=== PATIENT | male | born 1955 | race Caucasian/White ===

== ENCOUNTER 2020-09-10 16:34 | Emergency (ER) | payer OTHER | END 2020-09-10 17:24 | disposition home or self-care (01) | LOC: JVIRT 16:34 | DX: Z03.818 Encounter for observation for suspected exposure to other biological agents ruled out (principal) | CPT/HCPCS: C9803; Q3014-GT; U0003 ==

== ENCOUNTER 2022-12-05 07:21 | Day surgery (SDC) | payer OTHER, BC ==
[2022-11-30 18:07] VITALS: BMI 24.4
[2022-12-05] MEDS ORDERED: PROPOFOL 120 ML ONE (07:30)
[2022-12-05 08:37] VITALS: PULSE 61; RESP 18; TEMP 98.4
[2022-12-05 08:51] VITALS: BP 123/79
== END 2022-12-05 09:15 | disposition home or self-care (01) ==
LOC: FASU-ENDO 07:21
PROVIDERS: ATTEND Internal Medicine Gastroenterology
PROC: 0DJD8ZZ Inspection of Lower Intestinal Tract, Via Natural or Artificial Opening Endoscopic (ICD-10-PCS; principal; 2022-12-05 08:17)
DX: Z12.11 Encounter for screening for malignant neoplasm of colon (principal); K57.30 Diverticulosis of large intestine without perforation or abscess without bleeding